=== PATIENT | female | born 1960 | race Hispanic/Latino ===

== ENCOUNTER 2016-09-17 22:13 | Observation (INO) | payer OTHER ==
[~2016-09-17] VITALS: Ht 160 cm; Wt 72.3 kg
[~2016-09-17 22:13] MED LIST: ATRV10T PO; Aspirin PO
[2016-09-17 22:19] VITALS: BP 126/71; PULSE 76; RESP 17; O2SAT 96
--- NOTE | 2016-09-17 22:50 | ED.REPORT ---
HPI-General Illness Date of Service Sep 17, 2016 ED Provider: Lavern Sanchez MD History of Present Illness: Mrs. 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 Currently accompanied by her daughter translates for her. Of note she reports intermittent episodes of fast and slow heart rate with reports of generalized weakness following and are not associated with other symptoms, such as pain, dizziness, syncope, shortness of breath. She denies headache, change in vision, fever, nausea, vomiting, chest pain, shortness of breath, abdominal pain, constipation, diarrhea. She denies smoking alcohol and illicit/recreational drug use. Nursing Notes Stated Complaint: GENERAL MALAISE Chief Complaint: General Complaint Nursing Notes Reviewed: Yes Allergies: Coded Allergies: No Known Allergies (Verified Allergy, Unknown, 03/25/15) Scheduled ([Aspirin]) 325 MG TABEC 325 MG PO DAILY Atorvastatin (Lipitor) 10 Mg Tablet 10 MG PO HS General Time Seen by MD: 22:20 Chief Complaint Other (near syncope) Sudden in Onset?: Yes Past Medical History Past Medical History HLD Stroke in 2014 Past Surgical History None. Family History Mother with heart murmur Smoking History Never Smoker Social History Alcohol Use: Denies alcohol use Drug Use: Denies drug use Ambulatory Status Independent Review of Systems Full Review of Systems Constitutional: Reports: Chills, Weakness - generalized Complete sys rev & neg: except as marked. Physical Exam General: Pleasant lady sitting up in bed in no acute distress, well-developed, well-nourished, appropriately interactive HEENT: Normocephalic, atraumatic. External ears without defect. Pupils equal, round, and reactive to light and accommodation. Anicteric sclerae, moist conjunctivae, and no lid lag. Oropharynx free of erythema and cobble stoning with moist mucosa. Neck: Supple with full range of motion. No jugular venous distension. No bruits. No lymphadenopathy or thyromegaly. Cardiovascular: Regular rate and rhythm with no murmurs, rubs, or gallops appreciated Pulmonary: Clear to auscultation bilaterally with no crackles, wheezes, or rhonchi. Normal respiratory effort with no use of accessory muscles. Abdomen: Bowel tones present. Soft, nontender, nondistended. No hepatosplenomegaly or masses appreciated. Extremities: No clubbing, cyanosis, edema, or lymphadenopathy appreciated. Skin: Normal temperature, turgor, and texture; no rash, ulcers, or subcutaneous nodules appreciated. Neurological: Cranial nerves grossly intact. Normal muscle strength, tone, and bulk. Reflexes, coordination, and sensory function within normal limits. No known gait impairment. Psychiatric: Normal mood and affect. Alert and oriented to person, place, and time. Vital Signs Vital Signs Date Time Temp Pulse Resp B/P Pulse Ox O2 Delivery O2 Flow Rate FiO2 09/18/16 01:15 72 16 110/56 95 Room Air 09/17/16 22:19 37.1 76 17 126/71 96 Room Air Interpretation & Diagnostics Lab Results Interpretation Result Diagram: 09/17/16 2308 09/17/16 2308 Test 09/17/16 00:00 09/17/16 23:08 Urine Color Straw (YELLOW) Urine Appearance Clear (CLEAR,HAZY) Urine pH 7.0 (5.0-8.0) Urine Specific [place] 1.010 (1.003-1.035) Urine Protein Negativemg/dL (NEG,TRACE) Urine Glucose (UA) Negativemg/dL (NEGATIVE) Urine Ketones Negativemg/dL (NEGATIVE) Urine Occult Blood Small (NEGATIVE) Urine Nitrite Negative (NEGATIVE) Urine Bilirubin Negative (NEGATIVE) Urine Urobilinogen Normalmg/dL (NORMAL) Urine Leukocyte Esterase Small (NEGATIVE) Urine RBC 3-10/hpf (0-2) Urine WBC 0-5/hpf (0-5) Urine Epithelial Cells Few/hpf (NONE-MOD) Urine Crystals None seen (NONE SEEN) Urine Bacteria None/hpf (NONE-FEW) Urine Hyaline Casts None/lpf (NONE) Urine Granular Casts None seen (NONE SEEN) Urine Waxy Casts None seen (NONE SEEN) Urine Red Blood Cell Casts None seen (NONE SEEN) Urine White Blood Cell Casts None seen (NONE SEEN) Urine Mucus None seen (None Seen) Urine Trichomonas None seen (NONE SEEN) Urine Yeast None (NONE SEEN) Urine Culture Reflexed Indicated White Blood Count 7.7th/mm3 (3.8-10.1) Red Blood Count 4.63mil/mm3 (3.90-5.20) Hemoglobin 13.9g/dL (12.0-15.6) Hematocrit 41.4% (35.0-46.0) Mean Corpuscular Volume 89.4fL (81-100) Mean Corpuscular Hemoglobin 30.0pg (27.0-35.0) Mean Corpuscular Hemoglobin Concent 33.6% (32.0-37.0) Red Cell Distribution Width 12.7% (12.3-15.4) Platelet Count 275bil/L (150-400) Neutrophils (%) (Auto) 61.1% (40-74) Lymphocytes (%) (Auto) 25.0% (14-46) Monocytes (%) (Auto) 10.5% (4-12) Eosinophils (%) (Auto) 2.5% (0-5) Basophils (%) (Auto) 0.5% (0-3) Sodium Level 137mEq/L (134-144) Potassium Level 3.7mEq/L (3.5-5.2) Chloride Level 104mEq/L (97-108) Carbon Dioxide Level 22mmol/L (18-29) Blood Urea Nitrogen 14mg/dL (6-24) Creatinine 0.46mg/dL (0.57-1.00) Estimat Glomerular Filtration Rate 203mL/min (>59) Glucose Level 119mg/dL (60-99) Calcium Level 9.3mg/dL (8.5-10.1) Total Bilirubin 0.2mg/dL (0.0-1.2) Aspartate Amino Transf (AST/SGOT) 24U/L (0-50) Alanine Aminotransferase (ALT/SGPT) 22U/L (0-32) Alkaline Phosphatase 80U/L (25-150) Troponin T 0.010ug/L (0.0-0.011) Pro-B-Type Natriuretic Peptide 20.74pg/mL (0-249) Total Protein 7.2g/dL (6.4-8.4) Albumin 4.5g/dL (3.4-5.0) Hold Estevez Top Tube Received (Received) Re-Eval/Medical Decision Med Decision/Clinical Course Mrs. 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 Differential includes TIA, paroxysmal atrial fibrillation, ACS, viral illness. Here her vitals were stable, EKG normal, troponins negative, CBC and CMP noncontributory. BNP negative. She is to be admitted as observational status for cardiac for formal cardiac rule out. Time of Eval: 00:01 Patient Status: Condition improved Re-Evaluation/Progress Note: Patient is rechecked. Further history of present illness is obtain. Patient states that her symptoms began after going to the bathroom and she began to experience "darkness" but never lost consciousness. Symptoms associated with the episode include shaking, chills, and left sided chest pain that radiates to her left arm. She states that her left arm felt "heavy". Patient is currently taking atorvastatin. She is informed of her results. All of the patient's questions are addressed. She understands and agrees to the treatment plan. Counseled Regarding: Diagnosis, Lab results Discharge & Departure Primary Impression: Chest pain Chest pain type: unspecified Qualified Code: R07.9 - Chest pain, unspecified Disposition: ADMITTED TO HOSPITAL Referrals: Heydi Sanchez MD (PCP) Scribe Attestation Portions of this note were transcribed by Rashmi Wisdom. I, Dr. Sanchez personally performed the history, physical exam and medical decision-making; I reviewed and confirmed the accuracy of the information in the transcribed note. Signed by: Js Martinez, 09/18/16 0000. Attending Statement 56-year-old female with past medical history of embolic stroke, hyperlipidemia, currently taking atorvastatin and Coumadin here with near syncope associated with left-sided chest pain.Exam: Gen: WA, NAD, A&Ox4 CV: RRR, no m/r/g Resp: CTAB, no wheezing Abd: soft, non tender, non distended, no rebound/guarding Ext: no clubbing, cyanosis, edema Differential diagnosis includes but is not limited to ACS versus pneumonia versus pleural effusion versus PE. Patient is perk negative. At this time, she does not require PE workup. Her EKG is normal. Her initial troponin is negative. Her chest x-ray is normal. Given patient's risk factors, I have admitted her to the hospitalist service for formal ACS rule out. She is aware and amenable to plan. copies to: Heydi Sanchez MD, COREY P DO Sep 17, 2016 22:43 RASHMI WISDOM Sep 17, 2016 23:13 Lavern Sanchez MD Sep 18, 2016 02:34
[2016-09-17 23:19] LABS: BASOPHILS % (AUTO) 0.5 % (0-3); EOSINOPHILS % (AUTO) 2.5 % (0-5); MONOCYTES % (AUTO) 10.5 % (4-12); Mean Corpuscular Volume 89.4 fL (81-100); NEUTROPHILS % (AUTO) 61.1 % (40-74); Platelet Count 275 bil/L (150-400)
[2016-09-17 23:55] LABS: APPEARANCE,URINE CLEAR (CLEAR,HAZY); COLOR,URINE STRAW (YELLOW); OCCULT BLOOD,URINE SMALL (NEGATIVE); UROBILINOGEN,URINE NORMAL (NORMAL)
[2016-09-18] VITALS (8 sets, daily range): BP systolic 104–116; BP diastolic 56–77; PULSE 63–77; RESP 16–18; O2SAT 95–97
[2016-09-18] MEDS ORDERED: Senna-Docusate 8.6-50 mg Tablet PO PRN (00:55)
[2016-09-18] MEDS ORDERED: Polyethylene Glycol (PEG) 17 Gm Powder PO PRN (00:55)
[2016-09-18] MEDS ORDERED: Ondansetron 2 mg/mL 2 mL Inj IVPUSH PRN (00:55)
[2016-09-18] MEDS ORDERED: Alum-Mag Hydrox-Simeth 30 mL Suspension PO PRN (00:55)
[2016-09-18] MEDS ORDERED: 0.9% Sodium Chloride 1,000 ML IV ONE (02:25)
[2016-09-18] MEDS ORDERED: Glucose 40% Oral Gel 15 Gm Tube PO PRN (02:25)
--- NOTE | 2016-09-18 02:41 | PCM.HPMED ---
Subjective Date of Service Sep 18, 2016 Primary Provider: Admitting Physician: Primary Care Physician: Heydi Sanchez MD Attending Physician: Chief Complaint: Chills, near syncopal episode History of Present Illness: Mrs. Vale is a 56 year old Nigerian speaking female with history of hyperlipidemia and CVA in 2014 without residual symptoms presented to the ED with complaints of a near syncopal episode. She was asleep but woke up to utilize the bathroom and felt as if the room "darkened" accompanied with accompanying weakness and chills. She reports being extremely weak and cold, but denies LOC, headache, hearing or vision changes, SOB or chest pain. She mentions she has noticed her heart racing and feeling slow intermittently for the past couple months with no associated symptoms. 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 Review of Systems: 12 Point ROS is negative except as HPI. Allergies Coded Allergies: No Known Allergies (Verified Allergy, Unknown, 03/25/15) Home Medications Aspirin 325 MG PO DAILY Atorvastatin (Lipitor) 10 MG PO HS PMH Hyperlipidemia Embolic Stroke in 2014, no residual symptoms Surgical History None Family History Mother had heart murmur Social History Hx Alcohol Use: No Hx Substance Use: No Hx Tobacco Use: No Smoking Status: Never Smoker Living Arrangement: with Family Exam Vital Signs Vital Sign - Last Date Time Temp Pulse Resp B/P Pulse Ox O2 Delivery O2 Flow Rate FiO2 09/18/16 01:15 72 16 110/56 95 Room Air 09/17/16 22:19 37.1 Exam General - Age appropriate female in no acute distress. HEENT - NCAT, PERRLA, EOMI. Membranes moist, no scleral icterus or conjunctival injection. Neck - Supple, full ROM without thyromegaly. CV - RRR, no m/g/r. No carotid bruits appreciated. Pulses intact. Lungs - CTAB, no w/r/r. Abd - Soft, NT/ND, +BS. No organomegaly or masses appreciated. Extremities - No cyanosis, clubbing, or edema. Neurovascularly intact. Neuro - A&Ox3, CN 2-12 intact. No sensory deficits, no pronator drift. Heel to ojeda and finger to nose normal. Psych - Normal mood and affect. Appropriate responses. Skin - Warm, dry, no bruises or rashes. Lab and Diagnostics Result Diagram: 09/17/16230709/17/162307 12-lead ECG EKG in ED showed NSR with a rate of 72, no acute ST changes. Assessment & Plan Mrs. Vale is a 56 year old Nigerian speaking female with history of hyperlipidemia and CVA in 2014 without residual symptoms presented to the ED with complaints of a near syncopal episode with subsequent weakness. Near Syncopal Episode, resolved by time of admission - Patient history is nonspecific, possibly orthostatic, TIA, arrhythmia, ACS ( reported CP to ED doc but denies ever having CP on interview), - EKG in ED showed no acute ST changes; EKG in AM - Telemetry ordered for concern of arrhythmia Concern for NSTEMI, POA - Patient initially reported chest pain but denies upon interview, no history of prior VT, troponin negative; no CP associated with exertion - Repeat EKG in AM - first trop negative; Trend q6 - Beta princess as needed to control HR, nitro and morphine ordered PRN pain for chest pain - ASA 81mg; will hold on plavix at this time - Increase Atorvastatin to 40mg Possible paroxysmal dysrhythmia, POA - Patient reports intermittent racing heart rates that lasted only a couple minutes that started at rest - Continue to monitor telemetry for paroxysmal atrial fibrillation - Consider outpatient Holter/ZIO - Rate control as needed - TSH ordered Suspected orthostatics, POA -Nurse to do orthostatics -1L NS with 80ml/hr after -Re-check fluid status in am Less likely TIA, resolved by time of admission -Pt presents with benign neurological exam; with patient experiencing symptoms directly after changing positions likely to be more orthostatic -Will continue to monitor neurological status; if new changes arise will use stroke protocol imaging -Pt already on secondary prevention Hyperlipidemia, POA, stable - Increase to Atorvastatin 40 mg qHS per above Hx of CVA (reported embolic); - On secondary prevention as above - Unsure of clotting work-up or disorder Hyperglycemia; POA; ongoing - Presents without hx of DM with BG 119 - A1c ordered - Start on low correction Disposition: Patient is admitted for observation with anticipated LOS < 2 midnights for severity of presentation of illness, duration of treatment, and risk of adverse events. Pain Evaluation: Adequate Pain Control GI Prophylaxis: Not indicated VTE Prophylaxis: SCDs, Other (ambulate TID) VTE Mechanical Devices: Intermittant Pneumatic CD Resuscitation Status: CPR: Attempt Resuscitation Attending Statement The patient was seen and examined together with house staff on 09/18/2015 and I agree with the history, exam and plan as outlined in the note above. Dean Courtney DO Sep 18, 2016 02:41 Adele Villanueva DO Sep 18, 2016 04:57
--- NOTE | 2016-09-18 03:00 | NUR ---
Admit Pt arrived from ED around 0200. Son at bedside, denies pain, admission completed by admit RN. Vitals normal for age/condition. Pleasant and cooperative with care. No questions or concerns at this time. Report received from [facility].
[2016-09-18] MEDS: 0.9% Sodium Chloride 1,000 ML IV SCH ×2 (06:19→14:55)
[2016-09-18] MEDS: Insulin LISPRO 300 Unit/3 mL Inj SUBQ SCH ×2 (08:00→12:00)
[2016-09-18] MEDS ORDERED: Sodium Chloride LOK Flush 10 mL Syringe IVFLUSH SCH (08:30)
--- NOTE | 2016-09-18 11:53 | DRSVH ---
PROCEDURE: X-RAY CHEST ONE VIEW, PORTABLE ([id number]) INDICATIONS: RAPID HEART RATE TECHNIQUE: One view of the chest was acquired. COMPARISON: [facility], , CHEST 2VW, 03/24/2011, 16:43. FINDINGS: Surgical changes and devices: None. Lungs and pleura: Nonspecific course and opacities within the bases. Mediastinum: Mediastinal contours appear normal. Heart size is normal. Bones and chest wall: No suspicious bony lesions. Overlying soft tissues appear unremarkable. IMPRESSION: Nonspecific course and opacities within the bases. This could represent developing airspa ce disease or potentially mild edema. Dictated by: Claribel Reeves M.D. on 09/18/2016 at 8:47 Approved by: Claribel Reeves M.D. on 09/18/2016 at 8:47
--- NOTE | 2016-09-18 14:04 | DRSVH ---
PROCEDURE: MRI STROKE PROTOCOL ([id number]) Pre- and post-contrast brain MRI, non-contrast brain MR angiogram, pre- and postcontrast neck MR rosangela ogram INDICATIONS: stroke TECHNIQUE: Brain: Noncontrast axial T1 spin echo, axial T2 fast spin echo, sagittal and axial FLAIR, coronal T2 fast spin echo, axial gradient echo, axial diffusion and ADC through the brain. After the administr ation of contrast, axial 3D VIBE of the cranial vasculature and brain. Brain MRA: Non-contrast 3-D time of flight MR angiogram, with multiple hsubhsz-dlchimrqj-otwjybarlr (MIP) reformats performed. Neck MRA: Axial and sagittal TruFISP through the neck. Coronal dynamic MR angiogram during administ ration of contrast in the arterial and venous phases, with 3-dimenstional hmbwsmh-nsnzefqus-gculycqtd n (MIP) reformats constructed from subtraction images. COMPARISON: None. FINDINGS: Image quality: Excellent. BRAIN: CSF spaces: Ventricles are normal in size and shape. Basal cisterns are patent. No extra-axial flu id collections. Brain: No intracranial bleeds or mass effects. Troncoso-white matter interface is normal. Diffusion we ighted images show no acute ischemic insults. The previously noted subacute mesial left occipital isc hemic region has resolved in the interim. Brainstem appears normal. However, the cerebellar tonsils appear to project through the foramen magnum by as much as 4 mm. There is an empty sella. No masses are identified. Normal intravascular flow voids are present. No abnormal intracranial enhancement. Skull and face: Calvarial marrow signal is normal. Orbits appear normal. Small cysts are seen invol ving both parotid glands. Sinuses: Sinuses and mastoids are clear. BRAIN MR ANGIOGRAM: Anterior circulation: Intracranial internal carotid arteries are normal in size and enhancement. Th e flow within the paired anterior cerebral arteries is normal and symmetric. The flow within the mid dle cerebral arteries is normal and symmetric. The anterior communicating artery is seen. No stenos es, occlusions, or aneurysms. Posterior circulation: The visualized portions of the vertebral arteries demonstrate normal caliber, and join to form a normal appearing basilar artery. The flow within the posterior cerebral arteries is normal and symmetric. No stenoses, occlusions, or aneurysms. NECK MR ANGIOGRAM: Carotids: Great vessels demonstrate a conventional anatomy as they arise from the aortic arch. The origins of the common carotid arteries appear patent. The calibers and courses of both common caroti d arteries are normal. The bifurcation regions appear normal bilaterally. The internal carotid candice monie demonstrate normal course and caliber. Posterior circulation: The origins of the vertebral arteries appear patent. More superior portions of both vertebral arteries demonstrate normal course and caliber, and join to form a normal appearing basilar artery. Miscellaneous: Subclavian arteries appear patent. Pre-contrast images through the neck show no soft tissue abnormalities. IMPRESSION: BRAIN MRI: 1. No acute intracranial hemorrhage or ischemia. 2. No focal parenchymal mass or focal parenchymal abnormality. 3. Questionable mild cerebellar tonsillar herniation through the foramen magnum (Chiari malformation ). However, the cerebellar tonsils with respect to the foramen magnum are not well evaluated on the sagittal flair images. BRAIN MR ANGIOGRAM: Unremarkable intracranial vessels. No stenosis, aneurysm, or occlusion. NECK MR ANGIOGRAM: Unremarkable carotid and vertebral arteries. No stenosis, aneurysm or occlusion. The estimate of stenosis included in the report of the imaging study was calculated using the NASCET method Dictated by: Robert Lopez M.D. on 09/18/2016 at 13:02 Approved by: Robert Lopez M.D. on 09/18/2016 at 13:02
--- NOTE | 2016-09-18 14:22 | PCM.DIMED ---
Discharge Instructions Date of Service Sep 18, 2016 Dates of Hospitalization Sep 18, 2016 at 01:28 Discharge Diagnosis Discharge Diagnosis TIA Test Results PROCEDURE: MRI STROKE PROTOCOL ([id number]) Pre- and post-contrast brain MRI, non-contrast brain MR angiogram, pre- and postcontrast neck MR angiogram INDICATIONS: stroke TECHNIQUE: Brain: Noncontrast axial T1 spin echo, axial T2 fast spin echo, sagittal and axial FLAIR, coronal T2 fast spin echo, axial gradient echo, axial diffusion and ADC through the brain. After the administration of contrast, axial 3D VIBE of the cranial vasculature and brain. Brain MRA: Non-contrast 3-D time of flight MR angiogram, with multiple maximum- intensity-projection (MIP) reformats performed. Neck MRA: Axial and sagittal TruFISP through the neck. Coronal dynamic MR angiogram during administration of contrast in the arterial and venous phases, with 3-dimenstional ufcpvkh-xmtsuhroa-dusutktfrs (MIP) reformats constructed from subtraction images. COMPARISON: None. FINDINGS: Image quality: Excellent. BRAIN: CSF spaces: Ventricles are normal in size and shape. Basal cisterns are patent. No extra-axial fluid collections. Brain: No intracranial bleeds or mass effects. Troncoso-white matter interface is normal. Diffusion weighted images show no acute ischemic insults. The previously noted subacute mesial left occipital ischemic region has resolved in the interim. Brainstem appears normal. However, the cerebellar tonsils appear to project through the foramen magnum by as much as 4 mm. There is an empty sella. No masses are identified. Normal intravascular flow voids are present. No abnormal intracranial enhancement. Skull and face: Calvarial marrow signal is normal. Orbits appear normal. Small cysts are seen involving both parotid glands. Sinuses: Sinuses and mastoids are clear. BRAIN MR ANGIOGRAM: Anterior circulation: Intracranial internal carotid arteries are normal in size and enhancement. The flow within the paired anterior cerebral arteries is normal and symmetric. The flow within the middle cerebral arteries is normal and symmetric. The anterior communicating artery is seen. No stenoses, occlusions, or aneurysms. Posterior circulation: The visualized portions of the vertebral arteries demonstrate normal caliber, and join to form a normal appearing basilar artery. The flow within the posterior cerebral arteries is normal and symmetric. No stenoses, occlusions, or aneurysms. NECK MR ANGIOGRAM: Carotids: Great vessels demonstrate a conventional anatomy as they arise from the aortic arch. The origins of the common carotid arteries appear patent. The calibers and courses of both common carotid arteries are normal. The bifurcation regions appear normal bilaterally. The internal carotid arteries demonstrate normal course and caliber. Posterior circulation: The origins of the vertebral arteries appear patent. More superior portions of both vertebral arteries demonstrate normal course and caliber, and join to form a normal appearing basilar artery. Miscellaneous: Subclavian arteries appear patent. Pre-contrast images through the neck show no soft tissue abnormalities. IMPRESSION: BRAIN MRI: 1. No acute intracranial hemorrhage or ischemia. 2. No focal parenchymal mass or focal parenchymal abnormality. 3. Questionable mild cerebellar tonsillar herniation through the foramen magnum (Chiari malformation). However, the cerebellar tonsils with respect to the foramen magnum are not well evaluated on the sagittal flair images. BRAIN MR ANGIOGRAM: Unremarkable intracranial vessels. No stenosis, aneurysm, or occlusion. NECK MR ANGIOGRAM: Unremarkable carotid and vertebral arteries. No stenosis, aneurysm or occlusion. The estimate of stenosis included in the report of the imaging study was calculated using the NASCET method Dictated by: Robert Lopez M.D. on 09/18/2016 at 13:02 Approved by: Robert Lopez M.D. on 09/18/2016 at 13:02 Diet Low fat, Low Sodium, Heart Healthy Activity No restrictions Patient Instructions You were hospitalized with symptoms concerning for stroke. You were closely monitored during the hospitalization, workups including continuous monitoring of her heart rhythms, MRI of brain did not show any evidence of stroke. Instruction to patient> Please note that given your symptoms suggesting irregular heart rhythms which associated with ear episode, your history of embolic stroke in 2014, and the fact that aspirin was held for 2days, it was strongly recommended to follow up with annealing operator for further study such as "loop-recorder" to pick up truck driver possible irregular heart rhythms. Of note, you were recommended to stay one more day in the hospital for further monitoring of heart rhythms but declined. Please continue to take aspirin, statin as you are supposed to. Follow-up plan Please follow-up with your doctor in 2weeks Follow-up with PCP in: 2 weeks Autumn Arango MD Sep 18, 2016 14:22
--- NOTE | 2016-09-18 16:15 | NUR ---
Discharge Orders for discharge were received. Because the patient is primarily Trinidadian speaking a video paraprofessional interpreter was used for all discharge discussion. The patient was made aware of the plan for discharge and was agreeable to go. The patient was given information regarding her diagnosis and treatment, which medications to continue, follow up instructions, signs and symptoms to be aware of and specific instructions regarding following up with a publishing specialist. The patient's questions were then answered and the patient's asymptomatic IV removed intact. Tele was discontinued and the patient was dressed in her own clothing. The patient then ambulated to the main entrance and entered a private vehicle. At the time of discharge the patient was alert and oriented, with no complaints of pain, nausea, syncope or other problems.
--- NOTE | 2016-09-19 13:35 | PCM.DC.MED ---
Discharge Summary Date of Service Sep 18, 2016 Dates of Hospitalization Date of Hospital Admission Sep 18, 2016 at 01:28 Date of Discharge: Sep 18, 2016 Providers: Admitting Physician: Adele Villanueva DO Primary Care Physician: Heydi Sanchez MD Attending Physician: Adele Villanueva DO Diagnosis at Time of Discharge Diagnosis at Time of Discharge Probable Transient ischemic attack versus vasovagal syncope Procedures XRay, CTs & MRIs PROCEDURE: MRI STROKE PROTOCOL ([id number]) Pre- and post-contrast brain MRI, non-contrast brain MR angiogram, pre- and postcontrast neck MR angiogram INDICATIONS: stroke TECHNIQUE: Brain: Noncontrast axial T1 spin echo, axial T2 fast spin echo, sagittal and axial FLAIR, coronal T2 fast spin echo, axial gradient echo, axial diffusion and ADC through the brain. After the administration of contrast, axial 3D VIBE of the cranial vasculature and brain. Brain MRA: Non-contrast 3-D time of flight MR angiogram, with multiple maximum- intensity-projection (MIP) reformats performed. Neck MRA: Axial and sagittal TruFISP through the neck. Coronal dynamic MR angiogram during administration of contrast in the arterial and venous phases, with 3-dimenstional dpctmbm-bwvaejcdv-ocalbagkej (MIP) reformats constructed from subtraction images. COMPARISON: None. FINDINGS: Image quality: Excellent. BRAIN: CSF spaces: Ventricles are normal in size and shape. Basal cisterns are patent. No extra-axial fluid collections. Brain: No intracranial bleeds or mass effects. Troncoso-white matter interface is normal. Diffusion weighted images show no acute ischemic insults. The previously noted subacute mesial left occipital ischemic region has resolved in the interim. Brainstem appears normal. However, the cerebellar tonsils appear to project through the foramen magnum by as much as 4 mm. There is an empty sella. No masses are identified. Normal intravascular flow voids are present. No abnormal intracranial enhancement. Skull and face: Calvarial marrow signal is normal. Orbits appear normal. Small cysts are seen involving both parotid glands. Sinuses: Sinuses and mastoids are clear. BRAIN MR ANGIOGRAM: Anterior circulation: Intracranial internal carotid arteries are normal in size and enhancement. The flow within the paired anterior cerebral arteries is normal and symmetric. The flow within the middle cerebral arteries is normal and symmetric. The anterior communicating artery is seen. No stenoses, occlusions, or aneurysms. Posterior circulation: The visualized portions of the vertebral arteries demonstrate normal caliber, and join to form a normal appearing basilar artery. The flow within the posterior cerebral arteries is normal and symmetric. No stenoses, occlusions, or aneurysms. NECK MR ANGIOGRAM: Carotids: Great vessels demonstrate a conventional anatomy as they arise from the aortic arch. The origins of the common carotid arteries appear patent. The calibers and courses of both common carotid arteries are normal. The bifurcation regions appear normal bilaterally. The internal carotid arteries demonstrate normal course and caliber. Posterior circulation: The origins of the vertebral arteries appear patent. More superior portions of both vertebral arteries demonstrate normal course and caliber, and join to form a normal appearing basilar artery. Miscellaneous: Subclavian arteries appear patent. Pre-contrast images through the neck show no soft tissue abnormalities. IMPRESSION: BRAIN MRI: 1. No acute intracranial hemorrhage or ischemia. 2. No focal parenchymal mass or focal parenchymal abnormality. 3. Questionable mild cerebellar tonsillar herniation through the foramen magnum (Chiari malformation). However, the cerebellar tonsils with respect to the foramen magnum are not well evaluated on the sagittal flair images. BRAIN MR ANGIOGRAM: Unremarkable intracranial vessels. No stenosis, aneurysm, or occlusion. NECK MR ANGIOGRAM: Unremarkable carotid and vertebral arteries. No stenosis, aneurysm or occlusion. The estimate of stenosis included in the report of the imaging study was calculated using the NASCET method Dictated by: Robert Lopez M.D. on 09/18/2016 at 13:02 Approved by: Robert Lopez M.D. on 09/18/2016 at 13:02 ECG 12 Lead EKG in ED showed NSR with a rate of 72, no acute ST changes. Brief History H&P performed by on 09/18 Mrs. Vale is a 56 year old Cymro speaking female with history of hyperlipidemia and CVA in 2014 without residual symptoms presented to the ED with complaints of a near syncopal episode. She was asleep but woke up to utilize the bathroom and felt as if the room "darkened" accompanied with accompanying weakness and chills. She reports being extremely weak and cold, but denies LOC, headache, hearing or vision changes, SOB or chest pain. She mentions she has noticed her heart racing and feeling slow intermittently for the past couple months with no associated symptoms. 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 Hospital Course Mrs. Vale is a 56 year old Cymro speaking female with history of hyperlipidemia and CVA in 2014 without residual symptoms presented to the ED with complaints of a near syncopal episode with subsequent weakness. Near Syncopal Episode, resolved by time of admission, ddx: TIA with cardiac arrhythmia vs vasovagal syncope Patient history was nonspecific, although part of the history suggested maybe patient had palpitation with exertion multiple times in the past, could possibly suggest arrhythmia. orthostatic vitals were negative. Given history of embolic stroke, abrupt discontinuation of aspirin for the last 2 days, stroke workups were done, MRI brain MRA of brain and neck did not show any new findings. Telemetry did not show any arrhythmias. Thyroid function was normal. There was initial concern for ACS given chest pain patient mentioned, however, EKG did not show ischemic changes. Symptoms were not recurrent, decided not to proceed further cardiac work ups. Patient remained neurologically intact with no focal deficit, ambulating okay, deemed safe for discharge to home. She was recommended to follow up with cardiology Dr. Stearns for possible loop recorder given hx of palpitation.Even if pt had afib, given low CHADSVACS2(1-stroke), aspirin seemed appropriate for now, therefore aspirin will be continued, and statin as well. noted to have hyperglycemia but a1c <6, consistent to impaired fasting glucose. Another possibility is vasovagal episode with micturition given filling of anxious, sweating, impending doom or panic attack. However, evidence was not strong to pinpoint theses dx at this point. Exam Vital Signs (Last) Date Time Temp Pulse Resp B/P Pulse Ox O2 Delivery O2 Flow Rate FiO2 09/18/16 09:45 63 09/18/16 08:54 104/70 09/18/16 08:52 36.6 16 95 Room Air Exam NAD, comfortably laying down on the bed no JVD, MMM, no LAD RRR, nl s1, s2 no mrg CTAB, no w,c S,ND,NT,normoactive BS+ warm, no edema, pulses 2/2 Neuro:speech coherent, fluent, AAOx3 gait steady PERRLA, EOMI, symmetric face, no uvulae tongue deviation, able shrug shoulders equally able rotate neck equally on both sides FTN, dysdiadochokinesia intact, romberg negative, no pronator drift motor 5/5 throughout, sensory intact to dull touch Test 09/17/16 00:00 09/17/16 23:08 09/18/16 05:22 Urine Color Straw (YELLOW) Urine Appearance Clear (CLEAR,HAZY) Urine pH 7.0 (5.0-8.0) Urine Specific [place] 1.010 (1.003-1.035) Urine Protein Negativemg/dL (NEG,TRACE) Urine Glucose (UA) Negativemg/dL (NEGATIVE) Urine Ketones Negativemg/dL (NEGATIVE) Urine Occult Blood Small (NEGATIVE) Urine Nitrite Negative (NEGATIVE) Urine Bilirubin Negative (NEGATIVE) Urine Urobilinogen Normalmg/dL (NORMAL) Urine Leukocyte Esterase Small (NEGATIVE) Urine RBC 3-10/hpf (0-2) Urine WBC 0-5/hpf (0-5) Urine Epithelial Cells Few/hpf (NONE-MOD) Urine Crystals None seen (NONE SEEN) Urine Bacteria None/hpf (NONE-FEW) Urine Hyaline Casts None/lpf (NONE) Urine Granular Casts None seen (NONE SEEN) Urine Waxy Casts None seen (NONE SEEN) Urine Red Blood Cell Casts None seen (NONE SEEN) Urine White Blood Cell Casts None seen (NONE SEEN) Urine Mucus None seen (None Seen) Urine Trichomonas None seen (NONE SEEN) Urine Yeast None (NONE SEEN) Urine Culture Reflexed Indicated White Blood Count 7.7th/mm3 (3.8-10.1) Red Blood Count 4.63mil/mm3 (3.90-5.20) Hemoglobin 13.9g/dL (12.0-15.6) Hematocrit 41.4% (35.0-46.0) Mean Corpuscular Volume 89.4fL (81-100) Mean Corpuscular Hemoglobin 30.0pg (27.0-35.0) Mean Corpuscular Hemoglobin Concent 33.6% (32.0-37.0) Red Cell Distribution Width 12.7% (12.3-15.4) Platelet Count 275bil/L (150-400) Neutrophils (%) (Auto) 61.1% (40-74) Lymphocytes (%) (Auto) 25.0% (14-46) Monocytes (%) (Auto) 10.5% (4-12) Eosinophils (%) (Auto) 2.5% (0-5) Basophils (%) (Auto) 0.5% (0-3) Sodium Level 137mEq/L (134-144) Potassium Level 3.7mEq/L (3.5-5.2) Chloride Level 104mEq/L (97-108) Carbon Dioxide Level 22mmol/L (18-29) Blood Urea Nitrogen 14mg/dL (6-24) Creatinine 0.46mg/dL (0.57-1.00) Estimat Glomerular Filtration Rate 203mL/min (>59) Glucose Level 119mg/dL (60-99) Calcium Level 9.3mg/dL (8.5-10.1) Total Bilirubin 0.2mg/dL (0.0-1.2) Aspartate Amino Transf (AST/SGOT) 24U/L (0-50) Alanine Aminotransferase (ALT/SGPT) 22U/L (0-32) Alkaline Phosphatase 80U/L (25-150) Troponin T 0.010ug/L (0.0-0.011) Pro-B-Type Natriuretic Peptide 20.74pg/mL (0-249) Total Protein 7.2g/dL (6.4-8.4) Albumin 4.5g/dL (3.4-5.0) Hold Estevez Top Tube Received (Received) Triglycerides Level 80mg/dL (0-149) Cholesterol Level 139mg/dL (100-199) LDL Cholesterol, Calculated 62.000mg/dL (0-99) VLDL Cholesterol 16.000mg/dL HDL Cholesterol 61mg/dL (>39) Cholesterol/HDL Ratio 2.28 (0.0-4.4) Thyroid Stimulating Hormone (TSH) 1.630uIU/mL (0.450-4.500) Discharge Medications Discharge Medications ([Aspirin]) 325 MG TABEC 325 MG PO DAILY Prescribed by: GAL HARRIS MD Atorvastatin (Lipitor) 10 Mg Tablet 10 MG PO HS Prescribed by: GAL HARRIS MD Followup Plan Disposition: Home Follow-up plan Follow-up with primary care doctor in 2 weeks Time spent 65min Autumn Harris MD Sep 18, 2016 14:16
== END 2016-09-18 16:01 | disposition home or self-care (01) ==
LOC: SED 22:13 → OSC 09-18 01:28
PROVIDERS: ADMIT Internal Medicine; ATTEND Internal Medicine
DX: R07.9 Chest pain, unspecified (principal); R55 Syncope and collapse; E78.5 Hyperlipidemia, unspecified; R73.9 Hyperglycemia, unspecified; Z86.73 Personal history of transient ischemic attack (TIA), and cerebral infarction without residual deficits; Z79.82 Long term (current) use of aspirin; I49.8 Other specified cardiac arrhythmias
CPT/HCPCS: 36415; 70549; 70553; 71010; 80053; 80061; 81000; 81025; 83036; 83880; 84443; 84484; 85025; 87086; 93005; 99285; A9585; G0378; J1815; J7030